=== PATIENT | female | born 1965 | race African-American/Black ===

== ENCOUNTER 2019-04-16 15:53 | Emergency (ER) | payer SELFPAY ==
[~2019-04-16] VITALS: Ht 157.5 cm; Wt 48.0 kg
[2019-04-16 16:47] LABS: BASOPHILS % 0.7 % (0.0-2.0); EOSINOPHILS % 0.5 % (0.0-5.0); HEMATOCRIT. 41.9 % (36.0-48.0); MEAN CORPUSCULAR HEMOGLOBIN 31.1 pg (28.0-32.0); MEAN CORPUSCULAR VOLUME 93.4 fL (81.0-99.0); MEAN PLATELET VOLUME 7.2 fl (7.4-10.4); NEUTROPHILS % 77.8 % (40.0-76.0); PLATELET 218 x1000/uL (130-400); RED BLOOD CELL COUNT 4.49 mill/uL (4.2-5.4); RED CELL DISTRIBUTION WIDTH 13.9 % (11.6-14.6)
[2019-04-16 16:50] LABS: PROTHROMBIN TIME 10.3 sec (9.6-11.0)
[2019-04-16 16:51] LABS: CHLORIDE 106 mEq/L (98-107)
[2019-04-16 18:15] LABS: CLARITY URINE TURBID (CLEAR); COLOR URINE RED (YELLOW); KETONES URINE NEGATIVE (NEGATIVE); LEUKOCYTE ESTERASE URINE 3+ (NEGATIVE); NITRITE URINE POSITIVE (NEGATIVE); OCCULT BLOOD URINE 3+ (NEGATIVE); PROTEIN URINE 2+ (NEGATIVE); SPECIFIC GRAVITY URINE 1.022 (1.005-1.030); UROBILINOGEN URINE 0.2 E.U./dL (0.2-1.0)
[2019-04-16] MEDS ORDERED: IBUPROFEN 400MG TABLET PO ONE (18:30)
[2019-04-16] MEDS ORDERED: HYDROCODONE/APAP 7.5/325MG 1 TAB TABLET PO ONE (18:30)
[2019-04-16 19:40] VITALS: BP 122/73
== END 2019-04-16 19:55 | disposition home or self-care (01) ==
LOC: ER 15:53
DX: N95.0 Postmenopausal bleeding (principal); R58 Hemorrhage, not elsewhere classified; N30.90 Cystitis, unspecified without hematuria; J45.909 Unspecified asthma, uncomplicated; E78.00 Pure hypercholesterolemia, unspecified; I10 Essential (primary) hypertension; Z98.890 Other specified postprocedural states
CPT/HCPCS: 36415; 76830; 76856; 81003; 99284

== ENCOUNTER 2020-05-17 04:20 | Emergency (ER) | payer MEDICAID ==
[~2020-05-17] VITALS: Ht 165.1 cm; Wt 68.0 kg
[2020-05-17] MEDS ORDERED: DEXAMETHASONE 4MG TABLET PO ONE (05:15)
[2020-05-17 11:45] VITALS: BP 128/71
== END 2020-05-17 12:23 | disposition home or self-care (01) ==
LOC: ER 04:20
DX: F45.8 Other somatoform disorders (principal); J45.909 Unspecified asthma, uncomplicated; E78.00 Pure hypercholesterolemia, unspecified; I10 Essential (primary) hypertension; F20.9 Schizophrenia, unspecified
CPT/HCPCS: 36415; 71045; 84484; 87635; 93005; 99285; C9803; J8540

== ENCOUNTER 2023-08-07 09:22 | Emergency (ER) | payer MEDICAID, OTHER ==
[~2023-08-07] VITALS: Ht 165.1 cm; Wt 67.0 kg
[2023-08-07] MEDS ORDERED: SODIUM CHLORIDE 0.9% 1,000 ML IV ONE (09:30)
[2023-08-07 09:36] VITALS: O2SAT 100
[2023-08-07 10:35] LABS: BASOPHILS % 1.1 % (0.0-2.0); EOSINOPHILS % 1.8 % (0.0-5.0); HEMATOCRIT. 43.4 % (36.0-48.0); HEMOGLOBIN. 14.2 g/dL (12.0-16.0); LYMPHOCYTES % 39.1 % (20.0-50.0); MEAN CORPUSCULAR HEMOGLOBIN 29.3 pg (28.0-32.0); MEAN CORPUSCULAR HGB CONC 32.6 g/dL (31.0-37.0); MEAN CORPUSCULAR VOLUME 89.9 fL (81.0-99.0); MEAN PLATELET VOLUME 7.4 fl (7.4-10.4); MONOCYTES % 7.5 % (2.0-8.0); NEUTROPHILS % 50.5 % (40.0-76.0); PLATELET 270 x1000/uL (130-400); RED BLOOD CELL COUNT 4.83 mill/uL (4.2-5.4); RED CELL DISTRIBUTION WIDTH 14.3 % (11.6-14.6); WHITE BLOOD COUNT 5.6 x1000/uL (4.5-11.0)
[2023-08-07 10:55] LABS: ALANINE AMINOTRANSFERASE 18 IU/L (10-49); ALBUMIN 4.4 g/dL (3.2-4.8); ASPARTATE AMINOTRANSFERASE 19 IU/L (<34); BILIRUBIN TOTAL 0.4 mg/dL (0.1-1.0); CALCIUM 9.7 mg/dL (8.7-10.4); CARBON DIOXIDE 26 mEq/L (21-32); CHLORIDE 106 mEq/L (98-107); CREATININE 0.5 mg/dL (0.6-1.0); GLUCOSE 92 mg/dL (70-105); POTASSIUM 3.7 mEq/L (3.5-5.1); PROTEIN TOTAL 7.9 g/dL (6.0-8.3); SODIUM 139 mEq/L (136-145); UREA NITROGEN BLOOD 14 mg/dL (9-23)
[2023-08-07 12:00] LABS: CLARITY URINE CLEAR (CLEAR); COLOR URINE YELLOW (YELLOW); GLUCOSE URINE NEGATIVE (NEGATIVE); KETONES URINE NEGATIVE (NEGATIVE); LEUKOCYTE ESTERASE URINE NEGATIVE (NEGATIVE); NITRITE URINE NEGATIVE (NEGATIVE); OCCULT BLOOD URINE NEGATIVE (NEGATIVE); PROTEIN URINE NEGATIVE (NEGATIVE); SPECIFIC GRAVITY URINE 1.009 (1.005-1.030); UROBILINOGEN URINE 0.2 E.U./dL (0.2-1.0)
[2023-08-07] MEDS ORDERED: MECLIZINE 25MG TABLET PO ONE (12:00)
[2023-08-07 12:08] LABS: BETA HYDROXYBUTYRATE 0.1 mMol/L (0.0-0.3)
[2023-08-07] MEDS ORDERED: MECLIZINE 12.5MG TABLET PO NR (12:15)
[2023-08-07 13:48] VITALS: BP 144/82; PULSE 98; RESP 18; TEMP 98.2
== END 2023-08-07 13:48 | disposition home or self-care (01) ==
LOC: ER 09:22
DX: R42 Dizziness and giddiness (principal); I16.0 Hypertensive urgency; J45.909 Unspecified asthma, uncomplicated; E11.9 Type 2 diabetes mellitus without complications; E78.00 Pure hypercholesterolemia, unspecified; F20.9 Schizophrenia, unspecified; F10.10 Alcohol abuse, uncomplicated; Y90.9 Presence of alcohol in blood, level not specified
CPT/HCPCS: 80053; 81003; 82010; 85025; 36415; 70450; 93005; 96360; 99284; J8597; J7030; Z7610

== ENCOUNTER 2023-08-30 10:49 | Emergency (ER) | payer OTHER ==
[~2023-08-30] VITALS: Ht 165.1 cm; Wt 81.0 kg
[2023-08-30 10:52] VITALS: O2SAT 98
[2023-08-30] MEDS ORDERED: LOSARTAN (10:52)
[2023-08-30] MEDS ORDERED: METFORMIN (10:52)
[2023-08-30] MEDS: LOSARTAN 25 MG TABLET PO ONE (11:30)
[2023-08-30 11:34] LABS: BASOPHILS % 1.3 % (0.0-2.0); EOSINOPHILS % 1.1 % (0.0-5.0); HEMATOCRIT. 41.1 % (36.0-48.0); HEMOGLOBIN. 13.8 g/dL (12.0-16.0); LYMPHOCYTES % 34.4 % (20.0-50.0); MEAN CORPUSCULAR HEMOGLOBIN 30.2 pg (28.0-32.0); MEAN CORPUSCULAR HGB CONC 33.6 g/dL (31.0-37.0); MEAN PLATELET VOLUME 7.7 fl (7.4-10.4); MONOCYTES % 6.4 % (2.0-8.0); NEUTROPHILS % 56.8 % (40.0-76.0); PLATELET 246 x1000/uL (130-400); RED BLOOD CELL COUNT 4.57 mill/uL (4.2-5.4); RED CELL DISTRIBUTION WIDTH 14.6 % (11.6-14.6)
[2023-08-30 11:54] LABS: ALANINE AMINOTRANSFERASE 24 IU/L (10-49); ALBUMIN 4.4 g/dL (3.2-4.8); ASPARTATE AMINOTRANSFERASE 24 IU/L (<34); BILIRUBIN TOTAL 0.6 mg/dL (0.1-1.0); CALCIUM 9.4 mg/dL (8.7-10.4); CARBON DIOXIDE 29 mEq/L (21-32); CHLORIDE 106 mEq/L (98-107); CREATININE 0.5 mg/dL (0.6-1.0); GLUCOSE 89 mg/dL (70-105); POTASSIUM 3.9 mEq/L (3.5-5.1); PROTEIN TOTAL 7.7 g/dL (6.0-8.3); SODIUM 139 mEq/L (136-145); UREA NITROGEN BLOOD 12 mg/dL (9-23)
[2023-08-30 11:59] LABS: TROPONIN I HIGH SENSITIVITY < 4 ng/L (3.0-34)
[2023-08-30 13:25] LABS: CLARITY URINE CLEAR (CLEAR); COLOR URINE YELLOW (YELLOW); GLUCOSE URINE NEGATIVE (NEGATIVE); KETONES URINE NEGATIVE (NEGATIVE); LEUKOCYTE ESTERASE URINE NEGATIVE (NEGATIVE); NITRITE URINE NEGATIVE (NEGATIVE); OCCULT BLOOD URINE NEGATIVE (NEGATIVE); PH URINE 6.5 (4.5-8.0); PROTEIN URINE NEGATIVE (NEGATIVE); SPECIFIC GRAVITY URINE 1.008 (1.005-1.030); UROBILINOGEN URINE 0.2 E.U./dL (0.2-1.0)
[2023-08-30 14:06] VITALS: BP 141/71; PULSE 76; RESP 19; TEMP 98.6
== END 2023-08-30 14:09 | disposition home or self-care (01) ==
LOC: ER 10:49
DX: I10 Essential (primary) hypertension (principal); R42 Dizziness and giddiness; J45.909 Unspecified asthma, uncomplicated; E11.9 Type 2 diabetes mellitus without complications; E78.00 Pure hypercholesterolemia, unspecified; F20.9 Schizophrenia, unspecified; F10.10 Alcohol abuse, uncomplicated; Y90.9 Presence of alcohol in blood, level not specified
CPT/HCPCS: 36415; 71045; 80053; 81003; 83880; 84484; 85025; 93005; 99285

== ENCOUNTER 2023-12-20 08:39 | Emergency (ER) | payer OTHER ==
[~2023-12-20] VITALS: Ht 157.5 cm; Wt 84.5 kg
[~2023-12-20 08:39] MED LIST: LOSARTAN; METFORMIN
[2023-12-20 08:48] VITALS: O2SAT 99
[2023-12-20 10:04] LABS: BASOPHILS % 0.8 % (0.0-2.0); EOSINOPHILS % 0.8 % (0.0-5.0); HEMOGLOBIN. 13.3 g/dL (12.0-16.0); LYMPHOCYTES % 33.4 % (20.0-50.0); MEAN CORPUSCULAR HEMOGLOBIN 29.8 pg (28.0-32.0); MEAN CORPUSCULAR HGB CONC 33.4 g/dL (31.0-37.0); MEAN CORPUSCULAR VOLUME 89.3 fL (81.0-99.0); MONOCYTES % 6.2 % (2.0-8.0); NEUTROPHILS % 58.8 % (40.0-76.0); PLATELET 271 x1000/uL (130-400); RED BLOOD CELL COUNT 4.48 mill/uL (4.2-5.4); RED CELL DISTRIBUTION WIDTH 13.5 % (11.6-14.6); WHITE BLOOD COUNT 6.7 x1000/uL (4.5-11.0)
[2023-12-20 10:18] LABS: CLARITY URINE CLEAR (CLEAR); COLOR URINE YELLOW (YELLOW); GLUCOSE URINE NEGATIVE (NEGATIVE); KETONES URINE NEGATIVE (NEGATIVE); LEUKOCYTE ESTERASE URINE TRACE (NEGATIVE); NITRITE URINE NEGATIVE (NEGATIVE); OCCULT BLOOD URINE NEGATIVE (NEGATIVE); PH URINE >=9.0 (4.5-8.0); PROTEIN URINE NEGATIVE (NEGATIVE); SPECIFIC GRAVITY URINE 1.011 (1.005-1.030); UROBILINOGEN URINE 0.2 E.U./dL (0.2-1.0)
[2023-12-20 10:18] LABS: CHLORIDE 103 mEq/L (98-107); POTASSIUM 4.2 mEq/L (3.5-5.1); SODIUM 138 mEq/L (136-145)
[2023-12-20 10:19] LABS: CALCIUM 9.9 mg/dL (8.7-10.4); CARBON DIOXIDE 29 mEq/L (21-32)
[2023-12-20 10:24] LABS: CREATININE 0.5 mg/dL (0.6-1.0); GLUCOSE 111 mg/dL (70-105); UREA NITROGEN BLOOD 9 mg/dL (9-23)
[2023-12-20 10:26] LABS: ALANINE AMINOTRANSFERASE 17 IU/L (10-49); ALBUMIN 4.8 g/dL (3.2-4.8); ASPARTATE AMINOTRANSFERASE 23 IU/L (<34); BILIRUBIN DIRECT 0.1 mg/dL (<=3.0); BILIRUBIN TOTAL 0.4 mg/dL (0.1-1.0); PROTEIN TOTAL 7.8 g/dL (6.0-8.3)
[2023-12-20] MEDS: IBUPROFEN 400MG TABLET PO ONE (10:41)
[2023-12-20] MEDS: ACETAMINOPHEN 325MG TABLET PO ONE (10:41)
[2023-12-20 10:54] LABS: BACTERIA URINE TRACE; RBC URINE 0-2 /hpf (0-2); SQUAMOUS EPITHELIAL CELL URINE 2+ /lpf (RARE/1+); WBC URINE 0-2 /hpf (0-2); YEAST URINE NONE SEEN
[2023-12-20] MEDS ORDERED: SULF1TAB48 MT (10:58)
[2023-12-20] MEDS ORDERED: CEPH500T MT (10:58)
[2023-12-20] MEDS ORDERED: IBUP-2028 MT (10:58)
[2023-12-20 11:25] VITALS: BP 138/87; PULSE 86; RESP 18; TEMP 98.2
== END 2023-12-20 11:22 | disposition home or self-care (01) ==
LOC: ER 08:39
DX: M79.89 Other specified soft tissue disorders (principal); J45.909 Unspecified asthma, uncomplicated; E11.9 Type 2 diabetes mellitus without complications; E78.00 Pure hypercholesterolemia, unspecified; F20.9 Schizophrenia, unspecified; Z98.890 Other specified postprocedural states
CPT/HCPCS: 36415; 73110; 73130; 80048; 80076; 81003; 81025; 85025; 93971; 99284

== ENCOUNTER 2024-05-09 14:24 | Emergency (ER) | payer OTHER ==
[~2024-05-09] VITALS: Ht 157.5 cm; Wt 86.0 kg
[~2024-05-09 14:24] MED LIST changes: +CEPH500T MT; +IBUP-2028 MT; +SULF1TAB48 MT
[2024-05-09 14:32] VITALS: O2SAT 95
[2024-05-09 15:25] LABS: BASOPHILS % 0.7 % (0.0-2.0); EOSINOPHILS % 0.9 % (0.0-5.0); HEMATOCRIT. 40.6 % (36.0-48.0); HEMOGLOBIN. 13.5 g/dL (12.0-16.0); LYMPHOCYTES % 38.4 % (20.0-50.0); MEAN CORPUSCULAR HEMOGLOBIN 29.9 pg (28.0-32.0); MEAN CORPUSCULAR HGB CONC 33.3 g/dL (31.0-37.0); MEAN CORPUSCULAR VOLUME 89.7 fL (81.0-99.0); MEAN PLATELET VOLUME 7.1 fl (7.4-10.4); MONOCYTES % 5.1 % (2.0-8.0); NEUTROPHILS % 54.9 % (40.0-76.0); PLATELET 262 x1000/uL (130-400); RED BLOOD CELL COUNT 4.53 mill/uL (4.2-5.4); RED CELL DISTRIBUTION WIDTH 14.6 % (11.6-14.6); WHITE BLOOD COUNT 7.4 x1000/uL (4.5-11.0)
[2024-05-09 15:30] LABS: CHLORIDE 106 mEq/L (98-107); POTASSIUM 4.2 mEq/L (3.5-5.1); SODIUM 141 mEq/L (136-145)
[2024-05-09 15:32] LABS: CALCIUM 9.5 mg/dL (8.7-10.4); CARBON DIOXIDE 30 mEq/L (21-32)
[2024-05-09 15:37] LABS: CREATININE 0.8 mg/dL (0.6-1.0); GLUCOSE 97 mg/dL (70-105); UREA NITROGEN BLOOD 9 mg/dL (9-23)
[2024-05-09 15:38] LABS: TROPONIN I HIGH SENSITIVITY 4 ng/L (3.0-34)
[2024-05-09 17:02] LABS: ALANINE AMINOTRANSFERASE 27 IU/L (10-49); ALBUMIN 4.3 g/dL (3.2-4.8); ASPARTATE AMINOTRANSFERASE 22 IU/L (<34)
[2024-05-09 17:03] LABS: BILIRUBIN TOTAL 0.3 mg/dL (0.1-1.0); PROTEIN TOTAL 7.3 g/dL (6.0-8.3)
[2024-05-09 17:06] LABS: BILIRUBIN DIRECT < 0.1 mg/dL (<=3.0)
[2024-05-09 17:40] VITALS: BP 159/100; PULSE 79; RESP 18; TEMP 36.61404; O2SAT 99
== END 2024-05-09 18:23 | disposition home or self-care (01) ==
LOC: ER 14:24
DX: K30 Functional dyspepsia (principal); E11.9 Type 2 diabetes mellitus without complications; E78.00 Pure hypercholesterolemia, unspecified; F20.9 Schizophrenia, unspecified; I10 Essential (primary) hypertension; J45.909 Unspecified asthma, uncomplicated; Z20.822 Contact with and (suspected) exposure to COVID-19
CPT/HCPCS: 36415; 71045; 80048; 80076; 84484; 85025; 93005; 99283; 99285

== ENCOUNTER 2024-07-03 07:41 | Emergency (ER) | payer OTHER ==
[~2024-07-03] VITALS: Ht 157.5 cm; Wt 92.1 kg
[2024-07-03 07:52] VITALS: O2SAT 94
[2024-07-03 08:38] LABS: D-DIMER 0.78 mg/L FEU (<0.50); PROTHROMBIN TIME 10.8 sec (9.6-11.0)
[2024-07-03 08:40] LABS: CHLORIDE 102 mEq/L (98-107); POTASSIUM 4.2 mEq/L (3.5-5.1); SODIUM 138 mEq/L (136-145)
[2024-07-03 08:41] LABS: CALCIUM 9.8 mg/dL (8.7-10.4); CARBON DIOXIDE 28 mEq/L (21-32)
[2024-07-03 08:46] LABS: CREATININE 0.6 mg/dL (0.6-1.0); GLUCOSE 112 mg/dL (70-105); UREA NITROGEN BLOOD 9 mg/dL (9-23)
[2024-07-03] MEDS: METHYLPREDNISOLONE SOD SUCC 125MG/2ML (ACT-O-VIAL) IV ONE (09:00)
[2024-07-03] MEDS: DIPHENHYDRAMINE 50MG/ML VIAL IV ONE (09:00)
[2024-07-03 09:17] LABS: BASOPHILS % 0.9 % (0.0-2.0); EOSINOPHILS % 0.7 % (0.0-5.0); HEMATOCRIT. 45.7 % (36.0-48.0); HEMOGLOBIN. 14.9 g/dL (12.0-16.0); LYMPHOCYTES % 35.6 % (20.0-50.0); MEAN CORPUSCULAR HEMOGLOBIN 29.2 pg (28.0-32.0); MEAN CORPUSCULAR HGB CONC 32.7 g/dL (31.0-37.0); MEAN CORPUSCULAR VOLUME 89.4 fL (81.0-99.0); NEUTROPHILS % 57.8 % (40.0-76.0); PLATELET 259 x1000/uL (130-400); RED BLOOD CELL COUNT 5.11 mill/uL (4.2-5.4); RED CELL DISTRIBUTION WIDTH 14.3 % (11.6-14.6); WHITE BLOOD COUNT 6.7 x1000/uL (4.5-11.0)
[2024-07-03] MEDS ORDERED: CEPH500T MT (11:11)
[2024-07-03] MEDS ORDERED: CODE473S7 MT (11:11)
[2024-07-03] MEDS ORDERED: FURO20TA4 MT (11:13)
[2024-07-03] MEDS: IOHEXOL-350 100 ML BOTTLE ONE (11:14)
[2024-07-03 11:30] VITALS: BP 128/85; PULSE 95; RESP 16; TEMP 36.72516; O2SAT 96
== END 2024-07-03 11:31 | disposition home or self-care (01) ==
LOC: ER 07:41
DX: R05.9 Cough, unspecified (principal); E11.9 Type 2 diabetes mellitus without complications; E78.00 Pure hypercholesterolemia, unspecified; F20.9 Schizophrenia, unspecified; I10 Essential (primary) hypertension; J45.909 Unspecified asthma, uncomplicated; Z98.890 Other specified postprocedural states; Z79.899 Other long term (current) drug therapy
CPT/HCPCS: 99285; 71275; 71045; 80048; 85025; 85379; 85610; 36415; Q9967

== ENCOUNTER 2024-08-10 11:49 | Emergency (ER) | payer OTHER ==
[~2024-08-10] VITALS: Ht 157.5 cm; Wt 90.0 kg
[~2024-08-10 11:49] MED LIST changes: +CODE473S7 MT; +FURO20TA4 MT
[2024-08-10 12:11] VITALS: O2SAT 99
[2024-08-10] MEDS ORDERED: P50 MT (14:08)
[2024-08-10] MEDS ORDERED: ALBU18HF2 IH (14:08)
[2024-08-10] MEDS ORDERED: CODE473S7 MT (14:08)
[2024-08-10 14:25] VITALS: BP 138/77; PULSE 87; RESP 16; TEMP 36.72516; O2SAT 99
== END 2024-08-10 14:25 | disposition home or self-care (01) ==
LOC: ER 12:05
DX: J20.8 Acute bronchitis due to other specified organisms (principal); F20.9 Schizophrenia, unspecified; E78.00 Pure hypercholesterolemia, unspecified; E11.9 Type 2 diabetes mellitus without complications; I10 Essential (primary) hypertension; J45.909 Unspecified asthma, uncomplicated; Z98.890 Other specified postprocedural states; Z76.0 Encounter for issue of repeat prescription
CPT/HCPCS: 71045; 99283

== ENCOUNTER 2024-09-09 08:13 | Emergency (ER) | payer OTHER ==
[~2024-09-09] VITALS: Ht 157.5 cm; Wt 91.0 kg
[~2024-09-09 08:13] MED LIST changes: +ALBU18HF2 IH; +P50 MT
[2024-09-09 08:21] VITALS: PULSE 99; O2SAT 99
[2024-09-09 08:31] VITALS: BP 164/90; RESP 16; TEMP 36.7; O2SAT 95
[2024-09-09] MEDS ORDERED: D-ME473S50 PO (09:18)
== END 2024-09-09 09:24 | disposition home or self-care (01) ==
LOC: ER 08:13
DX: I10 Essential (primary) hypertension (principal); R05.9 Cough, unspecified; Z76.0 Encounter for issue of repeat prescription; E11.9 Type 2 diabetes mellitus without complications; E78.00 Pure hypercholesterolemia, unspecified; F20.9 Schizophrenia, unspecified; J45.909 Unspecified asthma, uncomplicated; Z98.890 Other specified postprocedural states; Z79.899 Other long term (current) drug therapy
CPT/HCPCS: 99281

== ENCOUNTER 2024-10-28 09:04 | Emergency (ER) | payer SELFPAY ==
[~2024-10-28] VITALS: Ht 157.5 cm; Wt 92.0 kg
[~2024-10-28 09:04] MED LIST changes: +D-ME473S50 PO
[2024-10-28 09:09] VITALS: BP 135/96; TEMP 36.8; O2SAT 98
[2024-10-28 09:29] VITALS: PULSE 89; RESP 16; O2SAT 98
== END 2024-10-28 11:01 | disposition home or self-care (01) ==
LOC: ER 09:04
DX: E11.9 Type 2 diabetes mellitus without complications (principal); E78.00 Pure hypercholesterolemia, unspecified; F20.9 Schizophrenia, unspecified; I10 Essential (primary) hypertension; J45.909 Unspecified asthma, uncomplicated; M19.042 Primary osteoarthritis, left hand
CPT/HCPCS: 73130; 73560; 99284

== ENCOUNTER 2024-12-21 08:22 | Emergency (ER) | payer OTHER ==
[~2024-12-21] VITALS: Ht 157.5 cm; Wt 91.0 kg
[2024-12-21 08:35] VITALS: O2SAT 96
[2024-12-21 09:15] VITALS: TEMP 36.9; O2SAT 98
[2024-12-21] MEDS: ACETAMINOPHEN 325MG TABLET PO ONE (09:19)
[2024-12-21 09:20] VITALS: BP 162/112; PULSE 83; RESP 16
[2024-12-21] MEDS: KETOROLAC 15MG/ML VIAL IM ONE (09:20)
[2024-12-21] MEDS: LIDOCAINE 5% PATCH TOP SCH (09:21)
[2024-12-21] MEDS ORDERED: LIDO700A30 TP (09:26)
== END 2024-12-21 09:38 | disposition home or self-care (01) ==
LOC: ER 08:22
DX: M54.6 Pain in thoracic spine (principal); M54.2 Cervicalgia; I10 Essential (primary) hypertension; E78.00 Pure hypercholesterolemia, unspecified; E11.9 Type 2 diabetes mellitus without complications; J45.909 Unspecified asthma, uncomplicated; F20.9 Schizophrenia, unspecified; Z91.040 Latex allergy status; Z91.010 Allergy to peanuts; Z79.899 Other long term (current) drug therapy; Z98.890 Other specified postprocedural states; V89.2XXA Person injured in unspecified motor-vehicle accident, traffic, initial encounter; Y93.89 Activity, other specified; Y92.89 Other specified places as the place of occurrence of the external cause; Y99.8 Other external cause status
CPT/HCPCS: 96372; 99283; J1885; Z7610

== ENCOUNTER 2025-03-13 08:09 | Emergency (ER) | payer OTHER ==
[~2025-03-13] VITALS: Ht 162.6 cm; Wt 91.0 kg
[~2025-03-13 08:09] MED LIST changes: +LIDO700A30 TP
[2025-03-13 08:19] VITALS: O2SAT 94
[2025-03-13 09:07] LABS: BASOPHILS % 0.4 % (0.0-2.0); EOSINOPHILS % 0.8 % (0.0-5.0); HEMATOCRIT. 40.5 % (36.0-48.0); HEMOGLOBIN. 13.6 g/dL (12.0-16.0); LYMPHOCYTES % 30.6 % (20.0-50.0); MEAN PLATELET VOLUME 7.0 fl (7.4-10.4); MONOCYTES % 7.0 % (2.0-8.0); NEUTROPHILS % 61.2 % (40.0-76.0); PLATELET 236 x1000/uL (130-400); RED BLOOD CELL COUNT 4.57 mill/uL (4.2-5.4); RED CELL DISTRIBUTION WIDTH 14.8 % (11.6-14.6)
[2025-03-13 09:33] LABS: CREATININE 0.6 mg/dL (0.6-1.0)
[2025-03-13 09:34] LABS: UREA NITROGEN BLOOD 10 mg/dL (9-23)
[2025-03-13 10:06] LABS: INFLUENZA TYPE A Presumptive Negative (Pres. Neg.); INFLUENZA TYPE B Presumptive Negative (Pres. Neg.)
[2025-03-13] MEDS: KETOROLAC 15MG/ML VIAL IV ONE (10:19)
[2025-03-13 10:28] VITALS: BP 145/99; PULSE 95; RESP 20; TEMP 36.3; O2SAT 95
== END 2025-03-13 10:32 | disposition home or self-care (01) ==
LOC: ER 08:09
DX: J06.9 Acute upper respiratory infection, unspecified (principal); B97.89 Other viral agents as the cause of diseases classified elsewhere; R04.2 Hemoptysis; E11.9 Type 2 diabetes mellitus without complications; E78.00 Pure hypercholesterolemia, unspecified; F20.9 Schizophrenia, unspecified; I10 Essential (primary) hypertension; J45.909 Unspecified asthma, uncomplicated; Z79.899 Other long term (current) drug therapy; Z20.822 Contact with and (suspected) exposure to COVID-19
CPT/HCPCS: 80048; 83735; 85025; 87804 ×2; 36415; 71045; 93005; 96374; 99285; 87426; J1885; Z7610

== ENCOUNTER 2025-05-15 17:55 | Emergency (ER) | payer OTHER ==
[~2025-05-15] VITALS: Ht 157.5 cm; Wt 91.0 kg
[2025-05-15 18:01] VITALS: O2SAT 96
[2025-05-15 18:52] LABS: BASOPHILS % 1.3 % (0.0-2.0); EOSINOPHILS % 1.6 % (0.0-5.0); HEMATOCRIT. 40.8 % (36.0-48.0); HEMOGLOBIN. 13.5 g/dL (12.0-16.0); LYMPHOCYTES % 33.7 % (20.0-50.0); MEAN PLATELET VOLUME 7.6 fl (7.4-10.4); MONOCYTES % 6.0 % (2.0-8.0); NEUTROPHILS % 57.4 % (40.0-76.0); PLATELET 226 x1000/uL (130-400); RED BLOOD CELL COUNT 4.58 mill/uL (4.2-5.4); RED CELL DISTRIBUTION WIDTH 14.1 % (11.6-14.6)
[2025-05-15 19:10] LABS: INR 0.9
[2025-05-15 19:19] LABS: CREATININE 0.7 mg/dL (0.6-1.0); TROPONIN I HIGH SENSITIVITY < 4 ng/L (3.0-34); UREA NITROGEN BLOOD 11 mg/dL (9-23)
[2025-05-15 19:37] LABS: COLOR URINE YELLOW (YELLOW); GLUCOSE URINE NEGATIVE (NEGATIVE); KETONES URINE NEGATIVE (NEGATIVE); LEUKOCYTE ESTERASE URINE 3+ (NEGATIVE); NITRITE URINE NEGATIVE (NEGATIVE); OCCULT BLOOD URINE 3+ (NEGATIVE); PH URINE 6.0 (4.5-8.0); PROTEIN URINE NEGATIVE (NEGATIVE); SPECIFIC GRAVITY URINE 1.013 (1.005-1.030); UROBILINOGEN URINE 0.2 E.U./dL (0.2-1.0)
[2025-05-15 19:59] LABS: CLARITY URINE HAZY (CLEAR)
[2025-05-15 20:01] LABS: BACTERIA URINE TRACE; RBC URINE 0-2 /hpf (0-2); SQUAMOUS EPITHELIAL CELL URINE 2+ /lpf (RARE/1+)
[2025-05-15] MEDS ORDERED: CEPH500T MT (21:10)
[2025-05-15] MEDS: CEPHALEXIN 250MG CAPSULE PO ONE (21:26)
[2025-05-15 21:30] VITALS: BP 162/94; PULSE 78; RESP 18; TEMP 36.7; O2SAT 95
== END 2025-05-15 21:30 | disposition home or self-care (01) ==
LOC: ER 17:55
DX: N30.91 Cystitis, unspecified with hematuria (principal); E78.00 Pure hypercholesterolemia, unspecified; E11.9 Type 2 diabetes mellitus without complications; F20.9 Schizophrenia, unspecified; J45.909 Unspecified asthma, uncomplicated; Z98.890 Other specified postprocedural states; Z79.899 Other long term (current) drug therapy; Z91.040 Latex allergy status; Z91.010 Allergy to peanuts
CPT/HCPCS: 36415; 71045; 80048; 81003; 84484; 85025; 86850; 86900; 87077; 93005; 99285

== ENCOUNTER 2025-07-01 07:29 | Emergency (ER) | payer OTHER ==
[~2025-07-01] VITALS: Ht 165.1 cm; Wt 95.0 kg
[2025-07-01 07:42] VITALS: TEMP 36.9; O2SAT 95
[2025-07-01 08:36] LABS: CLARITY URINE TURBID (CLEAR); COLOR URINE YELLOW (YELLOW); GLUCOSE URINE NEGATIVE (NEGATIVE); KETONES URINE NEGATIVE (NEGATIVE); LEUKOCYTE ESTERASE URINE 3+ (NEGATIVE); NITRITE URINE NEGATIVE (NEGATIVE); OCCULT BLOOD URINE 2+ (NEGATIVE); PH URINE 5.5 (4.5-8.0); PROTEIN URINE TRACE (NEGATIVE); SPECIFIC GRAVITY URINE 1.017 (1.005-1.030); UROBILINOGEN URINE 0.2 E.U./dL (0.2-1.0)
[2025-07-01] MEDS: CEFTRIAXONE SODIUM 500MG VIAL IM ONE (08:58)
[2025-07-01] MEDS: DOXYCYCLINE HYCLATE 100MG CAPSULE PO ONE (08:59)
[2025-07-01] MEDS ORDERED: DOXY100T28 MT (09:11)
[2025-07-01 09:14] LABS: SQUAMOUS EPITHELIAL CELL URINE 3+ /lpf (RARE/1+)
[2025-07-01 09:15] LABS: BACTERIA URINE 4+
[2025-07-01 09:16] LABS: TRICHOMONAS URINE 1+
[2025-07-01 09:17] LABS: RBC URINE 15-25 /hpf (0-2); WBC URINE 50-100 /hpf (0-2)
[2025-07-01 09:52] VITALS: BP 137/98; PULSE 86; RESP 16; O2SAT 95
[2025-07-04 13:11] LABS: CHLAMYDIA TRACHOMATIS NAA Negative (Negative); NEISSERIA GONORRHOEAE NAA Negative (Negative)
== END 2025-07-01 09:57 | disposition home or self-care (01) ==
LOC: ER 07:29
DX: T74.21XA Adult sexual abuse, confirmed, initial encounter (principal); E11.9 Type 2 diabetes mellitus without complications; E78.00 Pure hypercholesterolemia, unspecified; I10 Essential (primary) hypertension; J45.909 Unspecified asthma, uncomplicated; Z91.010 Allergy to peanuts; Z91.040 Latex allergy status; Z79.899 Other long term (current) drug therapy; X58.XXXA Exposure to other specified factors, initial encounter; Y93.89 Activity, other specified; Y92.89 Other specified places as the place of occurrence of the external cause; Y99.8 Other external cause status
CPT/HCPCS: 99284; 87491; 87591; 81003; 87086; 87210; 36415; 96372; J0696